=== PATIENT | male | born 1945 | race Two or more races ===

== ENCOUNTER 2017-06-01 11:34 | Emergency (ER) | payer MEDICARE, OTHER ==
[~2017-06-01] VITALS: Ht 177.8 cm; Wt 68.0 kg
[~2017-06-01 11:34] MED LIST: DUTA0.5C PO; LEVO112T2 PO; SIMV20TA2 PO
--- NOTE | 2017-06-01 11:40 | NUR ---
BIB SELF, PT STATING "MY HEART IS BEATING FAST", DENIES CHEST PAIN, SOB, NAD NOTED, VSS, RESP EVEN AND UNLABORED. PT PUT ON HOSPITAL GOWN AND MONITOR. WAITING FOR MD DE [facility] PA[facility]
--- NOTE | 2017-06-01 12:15 | NUR ---
IV INSERTED, BLOOD SAMPLE COLLECTED AND SENT TO LAB
[2017-06-01 12:20] LABS: BASOPHILS % (AUTO) 0.3 % (0.0-2.0); EOSINOPHILS # (AUTO) 0.1 /CMM (0.0-0.7); EOSINOPHILS % (AUTO) 2.1 % (0.0-6.0); HEMATOCRIT 41 % (39-51); HEMOGLOBIN 13.8 g/dL (13.5-17.5); LYMPHOCYTES # (AUTO) 1.6 /CMM (0.8-4.8); LYMPHOCYTES % (AUTO) 27.3 % (20.0-44.0); MEAN CORPUSCULAR HEMOGLOBIN 31 PG (26.0-33.0); MEAN CORPUSCULAR HGB CONC 34 g/dl (31.0-36.0); MEAN CORPUSCULAR VOLUME 92 fL (80-96); MONOCYTES # (AUTO) 0.3 /CMM (0.1-1.30); MONOCYTES % (AUTO) 5.8 % (2.0-12.0); NEUTROPHILS # (AUTO) 3.9 /CMM (1.8-8.9); NEUTROPHILS % (AUTO) 64.5 % (43.0-81.0); PLATELET COUNT (AUTO) 228 /CMM (150-450); RDW COEFFICIENT OF VARIATION 12.3 (11.5-15.0); RED BLOOD CELL COUNT(AUTO) 4.47 MIL/uL (4.5-6.0)
--- NOTE | 2017-06-01 12:20 | NUR ---
XRAY AT BS
[2017-06-01 12:30] LABS: CALCIUM, SERUM 9.1 mg/dL (8.5-10.1); CARBON DIOXIDE 29 mmol/L (21-32); CHLORIDE 102 mmol/L (98-107); GLUCOSE 106 mg/dL (74-106); POTASSIUM 4.3 mmol/L (3.5-5.1); SODIUM SERUM 137 mmol/L (136-145); UREA NITROGEN, BLOOD 21 mg/dL (7-18)
[2017-06-01 12:39] LABS: TROPONIN I < 0.017 ng/mL (0.00-0.056)
[2017-06-01 12:42] LABS: INR 0.96 (0.87-1.13)
[2017-06-01 13:46] VITALS: BP 142/87
--- NOTE | 2017-06-01 13:47 | NUR ---
IV removed. Catheter intact and site benign. Pressure and 4x4 applied to site. No bleeding noted. Patient discharged to home in stable condition. Written and verbal after care instructions given. Patient verbalizes understanding of instruction.
== END 2017-06-01 13:47 | disposition home or self-care (01) ==
LOC: ER 11:36
DX: R00.2 Palpitations (principal); E03.9 Hypothyroidism, unspecified; E78.00 Pure hypercholesterolemia, unspecified; I10 Essential (primary) hypertension; I35.0 Nonrheumatic aortic (valve) stenosis; R79.1 Abnormal coagulation profile; Z98.890 Other specified postprocedural states
CPT/HCPCS: 36415; 71010; 80048; 84484; 85025; 85730; 93005; 99285; A4606; Z7610

== ENCOUNTER 2019-04-07 10:21 | Emergency (ER) | payer OTHER, MEDICARE ==
[~2019-04-07] VITALS: Ht 177.8 cm; Wt 73.0 kg
--- NOTE | 2019-04-07 11:09 | NUR ---
"I was put on prednisone 1wk ago on tapering doses since then been having weird symptoms called PMD was told to get off it". PT AAOX4, VSS. RR EVEN & UNLABORED. DENIES CP, SOB, DIZZINESS, N/V, WEAKNESS @ THIS TIME. SEEN & EVAL'D BY DR. CARRASCO. WILL CONT TO MONITOR.
[2019-04-07 11:18] LABS: BASOPHILS % (AUTO) 0.4 % (0.0-2.0); EOSINOPHILS % (AUTO) 1.8 % (0.0-6.0); HEMATOCRIT 41 % (39-51); HEMOGLOBIN 14.1 g/dL (13.5-17.5); LYMPHOCYTES # (AUTO) 1.7 /CMM (0.8-4.8); LYMPHOCYTES % (AUTO) 20.8 % (20.0-44.0); MEAN CORPUSCULAR HGB CONC 34 g/dl (31.0-36.0); MEAN CORPUSCULAR VOLUME 93 fL (80-96); MONOCYTES # (AUTO) 0.7 /CMM (0.1-1.30); MONOCYTES % (AUTO) 8.9 % (2.0-12.0); NEUTROPHILS # (AUTO) 5.5 /CMM (1.8-8.9); NEUTROPHILS % (AUTO) 68.1 % (43.0-81.0); PLATELET COUNT (AUTO) 242 /CMM (150-450); RED BLOOD CELL COUNT(AUTO) 4.43 MIL/uL (4.5-6.0)
[2019-04-07 11:31] LABS: CALCIUM, SERUM 9.2 mg/dL (8.5-10.1); CREATININE 1.2 mg/dL (0.6-1.3); POTASSIUM 4.3 mmol/L (3.5-5.1)
--- NOTE | 2019-04-07 12:01 | NUR ---
Patient discharged to home in stable condition. Written and verbal after care instructions given. Patient verbalizes understanding of instruction. IV removed. Catheter intact and site benign. Pressure and 4x4 applied to site. No bleeding noted.
[2019-04-07 12:02] VITALS: BP 120/74
== END 2019-04-07 12:02 | disposition home or self-care (01) ==
LOC: ER 10:21
DX: R00.2 Palpitations (principal); T38.0X5A Adverse effect of glucocorticoids and synthetic analogues, initial encounter; R20.2 Paresthesia of skin; F41.9 Anxiety disorder, unspecified; E78.00 Pure hypercholesterolemia, unspecified; E03.9 Hypothyroidism, unspecified; Z98.890 Other specified postprocedural states; Y92.89 Other specified places as the place of occurrence of the external cause
CPT/HCPCS: 36415; 80048-TC; 85025-TC

== ENCOUNTER 2022-07-25 13:16 | Emergency (ER) | payer OTHER, MEDICARE ==
[~2022-07-25] VITALS: Ht 177.8 cm; Wt 70.3 kg
--- NOTE | 2022-07-25 13:25 | NUR ---
RECEIVED PT 76 YRS MALE CAME FROM HOME C/O DIZZNESS S/P HIT HE HEAD MORE THEN ONE WEEK respiration spont and easy no weekness
--- NOTE | 2022-07-25 13:57 | NUR ---
PT TAKEN TO RADIOLOGY FOR CT
--- NOTE | 2022-07-25 14:06 | NUR ---
PT RETURNED FROM RADIOLOGY
--- NOTE | 2022-07-25 14:07 | NUR ---
BACK FROM CT SCAN DONE
--- NOTE | 2022-07-25 14:07 | NUR ---
TECH AT BEDSIDE FOR EKG
--- NOTE | 2022-07-25 14:14 | NUR ---
PT AMBULATED TO THE REST ROOM WITH STEADY GAIT.
--- NOTE | 2022-07-25 14:21 | NUR ---
SEEN BY DR. LOO AT BED SIDE
--- NOTE | 2022-07-25 14:24 | NUR ---
BLOOD DROW AT BED SIDE
--- NOTE | 2022-07-25 14:24 | NUR ---
BY LAB TACK
[2022-07-25 15:09] LABS: BASOPHILS % (AUTO) 0.3 % (0.0-2.0); EOSINOPHILS % (AUTO) 1.5 % (0.0-6.0); HEMATOCRIT 40 % (39-51); HEMOGLOBIN 13.1 g/dL (13.5-17.5); LYMPHOCYTES # (AUTO) 1.1 K/uL (0.8-4.8); LYMPHOCYTES % (AUTO) 17.5 % (20.0-44.0); MEAN CORPUSCULAR HGB CONC 33 g/dl (31.0-36.0); MEAN CORPUSCULAR VOLUME 94 fL (80-96); MONOCYTES # (AUTO) 0.6 K/uL (0.1-1.30); MONOCYTES % (AUTO) 8.9 % (2.0-12.0); NEUTROPHILS # (AUTO) 4.7 K/uL (1.8-8.9); NEUTROPHILS % (AUTO) 71.8 % (43.0-81.0); PLATELET COUNT (AUTO) 217 K/uL (150-450); RED BLOOD CELL COUNT(AUTO) 4.24 MIL/uL (4.5-6.0); WHITE BLOOD COUNT (AUTO) 6.5 K/uL (4.3-11.0)
[2022-07-25 15:14] LABS: CALCIUM, SERUM 8.9 mg/dL (8.5-10.1); CREATININE 0.9 mg/dL (0.6-1.3); POTASSIUM 4.2 mmol/L (3.5-5.1)
[2022-07-25 15:20] LABS: ALBUMIN 3.5 g/dL (3.4-5.0); BILIRUBIN,DIRECT 0.1 mg/dL (0.0-0.2); BILIRUBIN,TOTAL 0.4 mg/dL (0.2-1.0); TOTAL PROTEIN, SERUM 6.6 g/dL (6.4-8.2)
--- NOTE | 2022-07-25 15:46 | NUR ---
Patient discharged to home in stable condition. Written and verbal after care instructions given. Patient verbalizes understanding of instruction.
[2022-07-25 15:51] VITALS: BP 129/80
== END 2022-07-25 15:52 | disposition home or self-care (01) ==
LOC: ER 13:24
DX: R42 Dizziness and giddiness (principal); E78.00 Pure hypercholesterolemia, unspecified; E03.9 Hypothyroidism, unspecified; Z79.899 Other long term (current) drug therapy
CPT/HCPCS: 36415; 70450-TC; 71045-TC; 80048-TC; 80076-TC; 84484-TC; 85025-TC